=== PATIENT | female | born 1970 | race Caucasian/White ===

== ENCOUNTER 2024-03-29 19:05 | Emergency (ER) | payer MEDICAID ==
[~2024-03-29] VITALS: Ht 172.7 cm; Wt 90.9 kg
[2024-03-29 19:09] VITALS: TEMP 98.8
--- NOTE | 2024-03-29 20:28 | NUR ---
VERBAL ORDER GIVEN FOR POC [facility] COVID SWAB BY DR. CAMPA.
[2024-03-29 22:22] LABS: BASOPHILS % (AUTO) 0.5 % (0-1); EOSINOPHILS # (AUTO) 0.1 X10'3 (0-0.9); EOSINOPHILS % (AUTO) 1.3 % (0-6); HEMATOCRIT 41.2 % (35.0-45.0); HEMOGLOBIN 13.7 g/dl (12.0-16.0); LYMPHOCYTES % (AUTO) 13.5 % (21-51); MEAN CORPUSCULAR HEMOGLOBIN 28.1 PG (27.0-31.0); MEAN CORPUSCULAR HGB CONC 33.2 g/dL (33.0-36.5); MEAN CORPUSCULAR VOLUME 84.7 FL (78-98); MEAN PLATELET VOLUME 8.2 FL (7.4-10.4); MONOCYTES # (AUTO) 0.9 X10'3 (0-0.9); MONOCYTES % (AUTO) 11.1 % (2-12); NEUTROPHILS # (AUTO) 5.6 X10'3 (1.8-7.7); NEUTROPHILS % (AUTO) 73.6 % (42-75); PLATELET COUNT 165 X10'3 (140-440); RED BLOOD COUNT 4.86 X10'6 (4.20-5.60); RED CELL DISTRIBUTION WIDTH 15.7 % (11.5-14.5); WHITE BLOOD COUNT 7.7 X10'3 (4.5-11.0)
[2024-03-29 22:31] LABS: ANION GAP 7 (8-16); BLOOD UREA NITROGEN 11 MG/DL (7-18); BUN/CREATININE RATIO 14.5 (10.0-20.0); CALCIUM 8.5 MG/DL (8.5-10.1); CHLORIDE 107 MMOL/L (99-107); CREATININE 0.76 MG/DL (0.40-0.90); GLUCOSE 102 MG/DL (70-104); MAGNESIUM 1.9 MG/DL (1.5-2.4); POTASSIUM 3.6 MMOL/L (3.5-5.1); SODIUM 137 MMOL/L (135-145); TOTAL CARBON DIOXIDE 22.9 MMOL/L (24-32); eCRCL 87 ML/MIN; eGFR 80 ML/MIN
--- NOTE | 2024-03-29 22:33 | NUR ---
PATIENT INFORMED OF NEED FOR UA, PATIENT AGREEABLE AND WILL NOTIFY RN WHEN SHE IS ABLE TO PROVIDE SAMPLE.
[2024-03-29] MEDS ORDERED: AZIT-164 PO (23:24)
[2024-03-29] MEDS ORDERED: AMOX-419 PO (23:24)
[2024-03-29 23:42] LABS: BILIRUBIN,URINE NEGATIVE (Neg); CLARITY,URINE CLOUDY (Clear); COLOR,URINE YELLOW (Yellow); GLUCOSE, URINE NEGATIVE (Neg); KETONES,URINE NEGATIVE (Neg); LEUKOCYTE ESTERASE ,URINE NEGATIVE (Neg); NITRITES, URINE NEGATIVE (Neg); OCCULT BLOOD,URINE NEGATIVE (Neg); PH,URINE 5.5 (4.8-8.0); PROTEIN,URINE NEGATIVE (Neg); UROBILINOGEN,URINE 0.2 E.U/dL (0.2-1.0)
[2024-03-29 23:44] LABS: UA COLLECTION TYPE CLN CATCH MIDSTREAM
[2024-03-29 23:49] LABS: BACTERIA,URINE FEW /HPF (Neg); CAL OXALATE CRYSTALS 2+ /HPF (NEGATIVE); MUCUS STRANDS MODERATE /LPF (Neg); SQUAMOUS EPITHELIAL CELL,UR MODERATE /LPF (FEW); WBC,URINE 0-4 /HPF (0-4)
[2024-03-29] MEDS: azithromycin 250mg tablet PO ONE (23:51)
[2024-03-29] MEDS: amox tr/potassium clavulanate 875/125mg TAB PO ONE (23:51)
[2024-03-29] MEDS: ondansetron 4mg rapidly disintigrating tab PO ONE (23:52)
[2024-03-30] MEDS: ipratropium/albuterol 3ml nebule NEB ONE (00:34)
[2024-03-30 00:37] VITALS: PULSE 77; RESP 16; O2SAT 92
[2024-03-30 00:39] VITALS: PULSE 79; RESP 18; O2SAT 93
[2024-03-30 01:35] VITALS: BP 104/81; PULSE 77; RESP 17; O2SAT 97
--- NOTE | 2024-03-30 01:35 | NUR ---
REPORT CALLED TO [facility] STAFF MEMBER, RUBY. DISCHARGE INSTRUCTIONS RELAYED AND NEW RX INFORMATION SHARED WITH RUBY, SHE VERBALIZED UNDERSTANDING AND STATED THAT SHE WOULD SHARE INFORMATION WITH PATIENT'S ATTENDING AT OUTSIDE FACILITY.
== END 2024-03-30 01:50 | disposition home or self-care (01) ==
LOC: ER 19:06
DX: J18.9 Pneumonia, unspecified organism (principal); Z20.822 Contact with and (suspected) exposure to COVID-19; R07.89 Other chest pain; Z79.2 Long term (current) use of antibiotics
CPT/HCPCS: 36415; 71045; 80048; 81001; 83735; 84145; 85025; 87811; 93005; 94640; 99285